=== PATIENT | male | born 1995 | race Caucasian/White ===

== ENCOUNTER 2017-01-05 11:40 | Emergency (ER) | payer SELFPAY ==
[2017-01-05] MEDS ORDERED: SUMAtriptan 6 MG/0.5 ML SDV SUBCUT ONE (12:13)
--- NOTE | 2017-01-05 12:28 | EDM.PDOC ---
ED HPI GENERAL MEDICAL PROBLEM - General Chief Complaint: Headache Stated Complaint: HEADACHES Time Seen by Provider: 01/05/17 11:51 Source of Information: Reports: Patient History Limitations: Reports: No Limitations - History of Present Illness INITIAL COMMENTS - FREE TEXT/NARRATIVE: HISTORY AND PHYSICAL: History of present illness: Patient is a 21-year-old male who presents to the emergency room with complaints of a migraine headache x 2 days. Patient reports that he has had migraine headaches since he was 14 years of age. Attributed these to multiple concussions he had received from football. Patient states he normally takes Tylenol and BC powder from the gas station. Reports he took both of these medications and did not find any relief. Patient voices concern of the frequency of which he has been getting migraines. He states he used to get migraine maybe every month which has progressively increased to several times per week. Patient reports he is here today to make sure there was "no scary stuff going on". Patient states he has never taken any prescribed abortive or maintenance migraine medication. Patient denies any familial history of migraines. Patient denies any recent head injury, blurred vision, nausea, vomiting. Rates his pain at a 5 out of 10 at this time. Review of systems: As per history of present illness and below otherwise all systems reviewed and negative. Past medical history: As per history of present illness and as reviewed below otherwise noncontributory. Surgical history: As per history of present illness and as reviewed below otherwise noncontributory. Social history: No reported history of drug or alcohol abuse. Family history: As per history of present illness and as reviewed below otherwise noncontributory. Physical exam: Gen.: Nontoxic appearing 21-year-old male. Well-developed and well-nourished. Answers questions appropriately. HEENT: Atraumatic, normocephalic, pupils reactive, negative for conjunctival pallor or scleral icterus, mucous membranes moist, throat clear, neck supple, nontender, trachea midline. Lungs: Clear to auscultation, breath sounds equal bilaterally, chest nontender. Heart: S1S2, regular, negative for clicks, rubs, or JVD. Abdomen: Soft, nondistended, nontender. Negative for masses or hepatosplenomegaly. Negative for costovertebral tenderness. Pelvis: Stable nontender. Genitourinary: Deferred. Rectal: Deferred. Extremities: Atraumatic, negative for cords or calf pain. Neurovascular unremarkable. Neuro: Awake, alert, oriented. Cranial nerves II through XII unremarkable. Cerebellum unremarkable. Motor and sensory unremarkable throughout. Exam nonfocal. Discussed with patient his past history of migraines encourage [id number] treatments. Offered to give the patient some IV medications to alleviate some of his discomfort. He declined those at this time but was willing to take Imitrex subcutaneous. When asked what his goal of being evaluated today was he said he wanted to make sure there was "no scary stuff going on" and would like a head CT. He should also voices concern he would like to know what is causing his headaches. At this time I suggested we proceed with a head CT. Discussed that we would likely find a specific reason for his migraines at this time. I encouraged him to follow-up with the primary care provider as they would likely do a migraine diary to further evaluate possible causes of his headaches. Patient voices understanding and is agreeable to plan of care. Denies any further questions at this time. 1300-patient reports that his migraine has subsided since receiving the subcutaneous Imitrex. Reviewed the results of the head CT with patient which are negative. Will provide patient with Imitrex prescription, reviewed instructions of this. Patient is encouraged to follow-up as we discussed previously. Diagnostics: CT head without Therapeutics: Imitrex subcutaneous Impression: Migraine Plan: 1. Your head CT was normal. As we discussed, I would like you to follow-up with the primary care provider to further evaluate possible causes severe headache. Until then you can start a "headache diary" to provide to your primary health care provider to look for possible correlations. 2. May take the Imitrex as needed at the onset of migraine. Take 1 tablet at the onset of headache symptoms and he may repeat second dose after 2 hours. If your symptoms are worse or change should follow-up in the emergency room or with your primary care provider as we discussed. 3. As I mentioned previously into failure need to follow-up with the primary care provider to possibly initiate preventative medications, due to the frequency you are getting migraines. Return to the ED as needed as discussed. Definitive disposition and diagnosis as appropriate pending reevaluation and review of above. Onset Date: 01/03/17 Duration: Day(s): Location: Reports: Head head Pain Score (Numeric/FACES): 5 - Related Data Allergies Allergy/AdvReac Type Severity Reaction Status Date / Time No Known Allergies Allergy Verified 01/05/17 11:42 Home Meds: Home Meds Aspirin/Caffeine [Bc Powder Packet] 1 packet PO ASDIRECTED 01/05/17 [History] Past Medical History - Past Health History Medical/Surgical History: Denies Medical/Surgical History Social & Family History - Family History Family Medical History: Noncontributory - Tobacco Use Smoking Status *Q: Never Smoker - Recreational Drug Use Recreational Drug Use: No ED ROS GENERAL - Review of Systems Review Of Systems: ROS reveals no pertinent complaints other than HPI. - Physical Exam Exam: See Below (See dictation) Course - Vital Signs Last Recorded V/S: Last Vital Signs Temp 36.6 C 01/05/17 11:56 Pulse 54 L 01/05/17 12:00 Resp 18 01/05/17 11:56 BP 108/63 01/05/17 11:56 Pulse Ox 98 01/05/17 11:56 - Orders/Labs/Meds Orders: Active Orders 24 hr Category Date Time Status Head wo Cont [CT] Stat Exams 01/05/17 12:13 Taken Meds: Medications Discontinued Medications Generic Name Dose Route Start Last Admin Trade Name Freq PRN Reason Stop Dose Admin Sumatriptan Succinate 6 mg 01/05/17 12:13 01/05/17 12:28 Imitrex SUBCUT 01/05/17 12:14 6 mg ONETIME ONE Administration Departure - Departure Time of Disposition: 13:14 Disposition: Home, Self-Care 01 Condition: Good Clinical Impression: Migraine - Discharge Information Referrals: PCP,None [Primary Care Provider] - Forms: ED Department Discharge Additional Instructions: My general discharge The following information is given to patients seen in the emergency department who are being discharged to home. This information is to outline your options for follow-up care. We provide all patients seen in our emergency department with a follow-up referral. The need for follow-up, as well as the timing and circumstances, are variable depending upon the specifics of your emergency department visit. If you don't have a primary care physician on staff, we will provide you with a referral. We always advise you to contact your personal physician following an emergency department visit to inform them of the circumstance of the visit and for follow-up with them and/or the need for any referrals to a consulting specialist. The emergency department will also refer you to a specialist when appropriate. This referral assures that you have the opportunity for follow-up care with a specialist. All of these measure are taken in an effort to provide you with optimal care, which includes your follow-up. Under all circumstances we always encourage you to contact your private physician who remains a resource for coordinating your care. When calling for follow-up care, please make the office aware that this follow-up is from your recent emergency room visit. If for any reason you are refused follow-up, please contact the [facility] Emergency Department at and asked to speak to the emergency department charge nurse. [facility] [address] [place] [id number] was normal. As we discussed, I would like you to follow-up with the primary care provider to further evaluate possible causes severe headache. Until then you can start a "headache diary" to provide to your primary health care provider to look for possible correlations. 2. May take the Imitrex as needed at the onset of migraine. Take 1 tablet at the onset of headache symptoms and he may repeat second dose after 2 hours. If your symptoms are worse or change should follow-up in the emergency room or with your primary care provider as we discussed. 3. As I mentioned previously into failure need to follow-up with the primary care provider to possibly initiate preventative medications, due to the frequency you are getting migraines. Return to the ED as needed as discussed. - My Orders Last 24 Hours: My Active Orders 01/05/17 12:13 Head wo Cont [CT] Stat - Assessment/Plan Last 24 Hours: My Active Orders 01/05/17 12:13 Head wo Cont [CT] Stat
[2017-01-05 13:28] VITALS: BP 117/74
--- NOTE | 2017-01-07 13:43 | CT ---
EXAM DATE: 01/05/17 PATIENT'S AGE: 21 Patient: DINA REAGAN Facility: [place], [place] Site . Site : 1995 Study: CT Head [id number] 12:40:31 PM Ordering Physician: Doctor Gonzalez Final Report: INDICATION : Headache. TECHNIQUE : Noncontrast CT scan of brain. FINDINGS : No acute intra or extra-axial hemorrhage. The ventricles and sulci are normal size, shape and configuration. No visualized intracranial mass or additional abnormal attenuation. Bony calvarium is intact. IMPRESSION : Unremarkable noncontrast CT scan of the brain. No visualized acute intracranial radiographic abnormality. Please note that all CT scans at this facility use dose modulation, iterative reconstruction, and/or weight-based dosing when appropriate to reduce radiation dose to as low as reasonably achievable. Dictated by Nico Zaragoza MD @ Jan 05 2017 12:52PM (Electronic Signature) Report Signed by Proxy. JUSTINO
== END 2017-01-05 13:35 | disposition home or self-care (01) ==
LOC: MW.ED 11:40
DX: G43.909 Migraine, unspecified, not intractable, without status migrainosus (principal)
CPT/HCPCS: 70450; 96372; 99284; J3030; 99283

== ENCOUNTER 2024-12-06 18:37 | Emergency (ER) | payer SELFPAY ==
[2024-12-06 19:02] VITALS: BP 134/59; PULSE 84
[2024-12-06] MEDS: Acetaminophen/HYDROcodone 325-10 MG Tab PO ONE (19:34)
[2024-12-06] MEDS: Acetaminophen/HYDROcodone 325-10 MG Tab PO STA (19:49)
== END 2024-12-06 19:53 | disposition home or self-care (01) ==
LOC: MW.ED 18:37
DX: M10.9 Gout, unspecified (principal); Z79.899 Other long term (current) drug therapy
CPT/HCPCS: 99283; A9270

== ENCOUNTER 2024-12-08 09:11 | Emergency (ER) | payer SELFPAY ==
[2024-12-08 11:04] LABS: BASOPHILS ABSOLUTE AUTO 0.01 K/uL (0.00-0.20); BASOPHILS PERCENT AUTO 0.2 % (0.0-1.0); EOSINOPHILS ABSOLUTE AUTO 0.01 K/uL (0.00-0.45); EOSINOPHILS PERCENT AUTO 0.2 % (0.0-6.0); IMMATURE GRAN ABSOLUTE AUTO 0.02 K/uL (0.00-0.05); IMMATURE GRAN PERCENT AUTO 0.3 % (0.0-0.4); LYMPHOCYTES ABSOLUTE AUTO 1.30 K/uL (1.00-4.80); LYMPHOCYTES PERCENT AUTO 19.9 % (24.0-44.0); MEAN PLATELET VOLUME 9.3 fL (9.4-12.4); MONOCYTES ABSOLUTE AUTO 0.57 K/uL (0.00-0.80); MONOCYTES PERCENT AUTO 8.7 % (0.0-8.0); NEUTROPHILS ABSOLUTE AUTO 4.62 K/uL (1.80-7.70); NEUTROPHILS PERCENT AUTO 70.7 % (41.0-71.0); NRBC ABSOLUTE 0.00 K/uL (0.00-0.02); NRBC PERCENT 0.0 /100WBC (0.0-0.2); PLATELET COUNT,PLT 269 K/uL (150-400); RED BLOOD CELL COUNT 4.37 M/uL (4.52-5.90); WHITE BLOOD CELL COUNT,WBC 6.53 K/uL (3.9-11.3)
[2024-12-08] MEDS: Iopamidol 755 MG/ML 500 ML Multipack Bottle IVPUSH STA (11:05)
[2024-12-08] MEDS: Ondansetron 4 MG/2 ML SDV IVPUSH ONE (11:17)
[2024-12-08 11:36] LABS: A/G RATIO 1.2 (0.9-1.6); ALANINE AMINOTRANSFERASE,ALT 31.0 IU/L (14-63); ASPARTATE AMNIOTRANSFERASE,AST 36.0 IU/L (15-37); BILIRUBIN TOTAL 0.5 mg/dL (0.2-1.0); BLOOD UREA NITROGEN,BUN 21.0 mg/dL (7.0-18.0); CARBON DIOXIDE,CO2 23.6 mmol/L (21.0-32.0); CHLORIDE,CL 102.0 mmol/L (98-107); CREATININE 1.2 mg/dL (0.8-1.3); EST CRCL DRUG DOSING (CG) 89.19 mL/min; GLUCOSE RANDOM 101.0 mg/dL (74-106); POTASSIUM,K 3.5 mmol/L (3.5-5.1); PROTEIN TOTAL,TP 7.6 g/dL (6.4-8.2); SODIUM,NA 142.0 mmol/L (136-148)
[2024-12-08 11:40] LABS: ESTIMATED GFR 83.0 mL/min (>60)
[2024-12-08 13:39] VITALS: BP 115/59; PULSE 61
== END 2024-12-08 13:40 | disposition home or self-care (01) ==
LOC: MW.ED 09:11
DX: R10.31 Right lower quadrant pain (principal); Z79.899 Other long term (current) drug therapy
CPT/HCPCS: 36415; 74177; 80053; 83605; 83690; 85025; 87428; 96361; 96374; 96375; 99284; J2270; J2405; J7030; Q9967; 99283